=== PATIENT | female | born 1955 | race Caucasian/White ===

== ENCOUNTER 2019-08-27 14:17 | Emergency (ER) | payer OTHER ==
[2019-08-27 14:29] VITALS: TEMP 98.2; BMI 21.7
[2019-08-27] MEDS ORDERED: ACETAMINOPHEN 1000 MG/100 ML VIAL (NON FORMULARY) IVPB ONE (15:26)
[2019-08-27] MEDS ORDERED: ACETAMINOPHEN INJECTION 100 ML IVPB ONE (15:32)
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
[2019-08-27] MEDS ORDERED: KETOROLAC TROMETHAMINE 30 MG/1 ML VIAL IVPUSH ONE ×2 (16:02→16:10)
[2019-08-27] MEDS ORDERED: BACITRACIN 15 GM TUBE TOPICAL OINTMENT TP ONE (16:03)
[2019-08-27] MEDS ORDERED: morphine CARPU-JECT 4 MG/1 ML DISP.SYRIN IVPUSH ONE (16:03)
[2019-08-27] MEDS ORDERED: ONDANSETRON 4 MG/2 ML VIAL IVPUSH ONE (16:03)
[2019-08-27] MEDS ORDERED: KETOROLAC TROMETHAMINE 30 MG/1 ML VIAL ONE (16:05)
[2019-08-27] MEDS ORDERED: MORPHINE SULFATE 2 MG/ML VIAL ONE (16:05)
[2019-08-27] MEDS ORDERED: ONDANSETRON 4 MG/2 ML VIAL ONE (16:05)
--- NOTE | 2019-08-27 16:09 | PDOC ---
Documentation entered by Don Davis SCRIBE, acting as scribe for Aleks Howard MD. Aleks Howard MD: This documentation has been prepared by the Ryan putnam Daniel, SCRIBE, under my direction and personally reviewed by me in its entirety. I confirm that the documentation accurately reflects all work, treatment, procedures, and medical decision making performed by me. Attending Attestation - Resident Resident Name: Bulmaro Ramirez - ED Attending Attestation I have performed the following: I have examined & evaluated the patient, The case was reviewed & discussed with the resident, I agree w/resident's findings & plan, Exceptions are as noted - HPI HPI: 08/27/19 15:57 The patient is a 64 year old female with no past medical history here today for evaluation of fall. The patient reports that she was walking outside when she tripped over her slipper and fell on her left side. She denies any head trauma or loss of consciousness. Now complains of pain in her L shoulder, L hip, and lower back. Patient denies headache, lightheadedness. Denies fever, chills. Denies chest pain, shortness of breath. Denies nausea, vomiting, diarrhea, abdominal pain. Allergies: NKDA PCP: Emily Dee - Physicial Exam PE: 08/27/19 16:08 "GENERAL: Awake, alert, and fully oriented, in no acute distress. HEAD: No signs of trauma EYES: PERRLA, EOMI, sclera anicteric, conjunctiva clear ENT: Auricles normal inspection, hearing grossly normal, nares patent, oropharynx clear without exudates. Moist mucosa NECK: Nontender, no stepoffs, Normal ROM, supple, no lymphadenopathy, JVD, or masses LUNGS: Breath sounds equal, clear to auscultation bilaterally. No wheezes, and no crackles HEART: Regular rate and rhythm, normal S1 and S2, no murmurs, rubs or gallops ABDOMEN: Soft, nontender, normoactive bowel sounds. No guarding, no rebound. No masses EXTREMITIES: + TTP to anterior L shoulder, L anterior chest, L hip NEUROLOGICAL: Cranial nerves II through XII intact. 5/5 strength and sensation in all extremities, Normal speech, normal gait, normal cerebellar function SKIN: Warm, Dry, normal turgor, no rashes or lesions noted. - Medical Decision Making 08/27/19 16:09 64 F with mechanical fall, now with L shoulder and L hip pain. No headstrike or signs of head trauma. - XR L shoulder, chest, L hip, pelvis, lumbar spine, LLE - Pain control 08/27/19 17:45 XRs negative for acute fx Ankle XR with ? avulsions but pt ambulatory in ED with no bony tenderness, no joint effusion. Very low suspicion for fx. Pt is well appearing, with normal vitals. Clinically stable for DC at this time. I discussed the physical exam findings, ancillary test results and final diagnoses with the patient. I answered all of the patient's questions. The patient was satisfied with the care received and felt comfortable with the discharge plan and treatment plan. The patient agrees to follow up with the primary care physician within 24-72 hours.
[2019-08-27] MEDS ORDERED: KETOROLAC TROMETHAMINE 15 MG/ML VIAL ONE (16:11)
[2019-08-27] MEDS ORDERED: KETOROLAC TROMETHAMINE 15 MG/ML VIAL IVPUSH ONE (17:32)
[2019-08-27] MEDS ORDERED: DIPHTH,PERTUSS(ACELL),TET 0.5 ML DISP.SYRIN IM ONE ×2 (18:09→18:23)
[2019-08-27 18:21] VITALS: BP 119/60; PULSE 72
--- NOTE | 2019-08-27 19:01 | PDOC ---
*Physical Exam - Vital Signs Last Vital Signs Temp Pulse Resp BP Pulse Ox 98.2 F 72 17 119/60 100 08/27/19 14:20 08/27/19 18:20 08/27/19 18:20 08/27/19 18:20 08/27/19 18:20 <Bulmaro Ramirez - Last Filed: 08/27/19 18:59> - Vital Signs Last Vital Signs Temp Pulse Resp BP Pulse Ox 98.2 F 72 17 119/60 100 08/27/19 14:20 08/27/19 18:20 08/27/19 18:20 08/27/19 18:20 08/27/19 18:20 <Aleks Howard - Last Filed: 08/30/19 12:06> ED Treatment Course - RADIOLOGY Radiology Studies Ordered: Category Date Time Status ANKLE-LEFT [RAD] Stat Radiology 08/27/19 16:00 Taken CHEST PA & LAT [RAD] Stat Radiology 08/27/19 15:57 Taken HIP & PELVIS-LEFT [RAD] Stat Radiology 08/27/19 15:59 Taken KNEE 2 POS-LEFT [RAD] Stat Radiology 08/27/19 16:01 Taken SPINE-LUMBAR SACRAL [RAD] Stat Radiology 08/27/19 16:02 Taken - Medications Given in the ED: ED Medications Discontinued Medications Generic Name Dose Route Start Last Admin Trade Name Sidney PRN Reason Stop Dose Admin Acetaminophen 1,000 mg 08/27/19 15:26 08/27/19 15:41 Ofirmev Injection - IVPB 08/27/19 15:27 1,000 mg ONCE ONE Administration Bacitracin 1 applic 08/27/19 16:03 08/27/19 16:21 Bacitracin - TP 08/27/19 16:04 1 applic ONCE ONE Administration Diphtheria/Tetanus/Acell Pertussis 0.5 ml 08/27/19 18:09 08/27/19 18:26 Boostrix - IM 08/27/19 18:10 0.5 ml .ONCE ONE Administration Ketorolac Tromethamine 30 mg 08/27/19 16:02 08/27/19 16:21 Toradol Injection - IVPUSH 08/27/19 16:03 Not Given ONCE ONE Ketorolac Tromethamine 15 mg 08/27/19 16:10 08/27/19 16:20 Toradol Injection - IVPUSH 08/27/19 16:11 15 mg ONCE ONE Administration Ketorolac Tromethamine 15 mg 08/27/19 17:32 08/27/19 17:56 Toradol Injection - IVPUSH 08/27/19 17:33 15 mg ONCE ONE Administration Morphine Sulfate 2 mg 08/27/19 16:03 08/27/19 16:20 Morphine Injection - IVPUSH 08/27/19 16:04 2 mg ONCE ONE Administration Ondansetron HCl 4 mg 08/27/19 16:03 08/27/19 16:20 Zofran Injection IVPUSH 08/27/19 16:04 4 mg ONCE ONE Administration <Bulmaro Ramirez - Last Filed: 08/27/19 18:59> - Medications Given in the ED: ED Medications Discontinued Medications Generic Name Dose Route Start Last Admin Trade Name Acq PRN Reason Stop Dose Admin Acetaminophen 1,000 mg 08/27/19 15:26 08/27/19 15:41 Ofirmev Injection - IVPB 08/27/19 15:27 1,000 mg ONCE ONE Administration Bacitracin 1 applic 08/27/19 16:03 08/27/19 16:21 Bacitracin - TP 08/27/19 16:04 1 applic ONCE ONE Administration Diphtheria/Tetanus/Acell Pertussis 0.5 ml 08/27/19 18:09 08/27/19 18:26 Boostrix - IM 08/27/19 18:10 0.5 ml .ONCE ONE Administration Ketorolac Tromethamine 30 mg 08/27/19 16:02 08/27/19 16:21 Toradol Injection - IVPUSH 08/27/19 16:03 Not Given ONCE ONE Ketorolac Tromethamine 15 mg 08/27/19 16:10 08/27/19 16:20 Toradol Injection - IVPUSH 08/27/19 16:11 15 mg ONCE ONE Administration Ketorolac Tromethamine 15 mg 08/27/19 17:32 08/27/19 17:56 Toradol Injection - IVPUSH 08/27/19 17:33 15 mg ONCE ONE Administration Morphine Sulfate 2 mg 08/27/19 16:03 08/27/19 16:20 Morphine Injection - IVPUSH 08/27/19 16:04 2 mg ONCE ONE Administration Ondansetron HCl 4 mg 08/27/19 16:03 08/27/19 16:20 Zofran Injection IVPUSH 08/27/19 16:04 4 mg ONCE ONE Administration <LeeAleks - Last Filed: 08/30/19 12:06> Discharge <Bulmaro Ramirez - Last Filed: 08/27/19 18:59> <Aleks Howard - Last Filed: 08/30/19 12:06> - Discharge Information Clinical Impression/Diagnosis: Fall, Hip pain, Back pain Condition: Improved Disposition: HOME - Follow up/Referral Referrals: Emily Suarez MD [Primary Care Provider] - - Patient Discharge Instructions Additional Instructions: You came to the ER after a fall. We did some XRays, and fortunately you do not have any fractures. You were given medicine for the pain, and you do not need any further management in the ER, so you are now being discharged. Medications: - Please take Ibuprofen 200mg twice for your pain, no more than 3 times per day Follow-up: - Please follow up with your primary care physician within 1 week. Follow-up: - Please return to the ER if your pain worsens, or if you develop any symptoms concerning to you. - Post Discharge Activity Work/Back to School Note: Back to Work
== END 2019-08-27 19:09 | disposition home or self-care (01) ==
LOC: JER 14:17
PROC: 3E033NZ Introduction of Analgesics, Hypnotics, Sedatives into Peripheral Vein, Percutaneous Approach (ICD-10-PCS; principal; 2019-08-27)
PROC: 3E0333Z Introduction of Anti-inflammatory into Peripheral Vein, Percutaneous Approach (ICD-10-PCS; 2019-08-27)
PROC: 3E033GC Introduction of Other Therapeutic Substance into Peripheral Vein, Percutaneous Approach (ICD-10-PCS; 2019-08-27)
PROC: 3E0234Z Introduction of Serum, Toxoid and Vaccine into Muscle, Percutaneous Approach (ICD-10-PCS; 2019-08-27)
DX: M79.642 Pain in left hand (principal); W18.39XA Other fall on same level, initial encounter; Y93.89 Activity, other specified; Y92.89 Other specified places as the place of occurrence of the external cause; Z87.891 Personal history of nicotine dependence; G56.01 Carpal tunnel syndrome, right upper limb; K21.9 Gastro-esophageal reflux disease without esophagitis; E78.00 Pure hypercholesterolemia, unspecified
CPT/HCPCS: 71046-TC-FY; 72100-TC-FY; 73523-TC-FY; 73560-TC-LT-FY; 73610-TC-LT-FY; 90715; 99282-25; J0131

== ENCOUNTER 2024-01-01 13:55 | Emergency (ER) | payer BC, OTHER ==
[2024-01-01 14:19] VITALS: BP 103/73; PULSE 89; RESP 17; TEMP 98.9; BMI 23.0
[2024-01-01] MEDS ORDERED: traMADol HCL 50 MG TABLET ONE (17:15)
[2024-01-01] MEDS: traMADol HCL 50 MG TABLET PO ONE (17:25)
== END 2024-01-01 22:30 ==
LOC: FER 13:55
DX: M25.552 Pain in left hip (principal)
CPT/HCPCS: 73502-TC-LT-FY; 99283-25